=== PATIENT | male | born 1960 ===

== ENCOUNTER 2018-08-25 09:24 | Emergency (ER) | payer MEDICAID ==
[2018-08-25 09:28] VITALS: BP 144/92; PULSE 86; RESP 18; TEMP 97.7; O2SAT 97
[2018-08-25 09:30] VITALS: BMI 29.5
[2018-08-25] MEDS ORDERED: Naproxen 500 MG TAB PO STA (10:18)
[2018-08-25] MEDS ORDERED: COLCHICINE 0.6 MG CAPSULE PO STA ×2 (10:18)
--- NOTE | 2018-08-25 10:22 | ED PDOC ---
Lower Extremity Pain/Injury Time Seen by Provider: 08/25/18 09:31 Chief Complaint (Nursing): Lower Extremity Problem/Injury History Per: Patient History/Exam Limitations: no limitations Additional Complaint(s): Pt is a 57 y/o male with hx of Gout presenting with R. Toe pain on the plantar surface x1 week. States he noticed pain, redness and swelling 1 week ago and has been taking tylenol but symptoms have not improved. He was also had subjective fevers and chills. He denies any recent trauma or skin bites. He admits that he normally takes Colchicine, Sulindac, and Allopurinol for his Gout Flares but he ran out of the medication. Last flare was 6 months ago of her left elbow. PMD: None PMHx: Gout Medications: Tylenol prn Fm: NC Social: Non smoker, denies heavy ETOH use (last drink 2 M ago), or illicit drug use. Homeless, staying at halfway Past Medical History Reviewed: Historical Data, Nursing Documentation, Vital Signs Vital Signs: Last Vital Signs Temp 97.7 F 08/25/18 09:27 Pulse 86 08/25/18 09:27 Resp 18 08/25/18 09:27 BP 144/92 H 08/25/18 09:27 Pulse Ox 97 08/25/18 09:27 - Medical History Other PMH: GOUT - Surgical History Surgical History: No Surg Hx - Family History Family History: States: No Known Family Hx - Living Arrangements Living Arrangements: Other (Half-Way) - Social History Current smoker - smoking cessation education provided: No - Home Medications Home Medications: Ambulatory Orders Medication Instructions Recorded Colchicine 0.6 mg PO BID #14 tablet 08/25/18 Naproxen 0 mg PO BID 7 Days #14 tab 08/25/18 - Allergies Allergies/Adverse Reactions: Allergies Allergy/AdvReac Type Severity Reaction Status Date / Time No Known Allergies Allergy Verified 08/25/18 09:37 Wells Criteria for PE - Wells Criteria for Pulmonary Embolism Clinical Signs and Symptoms of DVT: No P.E is #1 Diagnosis, or Equally Likely: No Heart Rate >100: No Immobilization at least 3 days;Surgery previous 4 weeks: No Previous, objectively diagnosed PE or DVT: No Hemoptysis: No Malignancy w/treatment within 6 months, or palliative: No Total Score: 0 Review of Systems Constitutional: Positive for: Fever, Chills Cardiovascular: Negative for: Chest Pain, Palpitations Respiratory: Negative for: Cough, Shortness of Breath Gastrointestinal: Negative for: Nausea, Vomiting Physical Exam - Physical Exam Appears: Positive for: No Acute Distress (Comfortable appearing male) Skin: Positive for: Normal Color Eye Exam: Positive for: Normal appearance Cardiovascular/Chest: Positive for: Regular Rate, Rhythm Respiratory: Positive for: Normal Breath Sounds Pulses-Dorsalis Pedis (L): 2+ Pulses-Dorsalis Pedis (R): 2+ Extremity: Positive for: Other (Right lower extremity- Non pitting edema of foot and ankle, mild redness over dorsum between 1st and 2nd digit, focal tenderness of plantar surfuce of 2nd digit. Warm to touch. Motor and sensorium in tact. DP pulse 2/2) Neurological/Psych: Positive for: Awake, Alert - Laboratory Results Result Diagrams: 08/25/18 10:58 - ECG O2 Sat by Pulse Oximetry: 97 Medical Decision Making Medical Decision Making: Pt is a 57 y/o male with hx of Gout presenting with redness, swelling, and warmth associated with pain of 2nd tarsal x 1 week. Likely Gout Flare. CBC Xray Naproxen 500mg Colchicine 0.6mg CBC and Uric acid normal Xray no acute findings, chronic changes seen Pt reports pain improved after receiving medication Will d/c patient on Nsaid and Colchicine x1 week Strongly advised pt to apply to [facility] and make f/u appt at clinic with me in 1 week. Disposition - Clinical Impression Clinical Impression: Gout attack - Patient ED Disposition Is Patient to be Admitted: No Counseled Patient/Family Regarding: Studies Performed, Diagnosis, Need For Followup, Rx Given - Disposition Referrals: [facility] [Provider Group] Disposition: Routine/Home Disposition Time: 12:15 Condition: IMPROVED Prescriptions: Colchicine 0.6 mg PO BID #14 tablet Naproxen 0 mg PO BID 7 Days #14 tab Instructions: Gout Forms: [facility] (Bulgarian) Print Language: PRYDEINIG
[2018-08-25] MEDS ORDERED: Naproxen 500 MG TAB PO ONE (10:57)
[2018-08-25 11:24] LABS: BASO % 0.3 % (0.0-2.0); EOS # 0.2 K/uL (0.0-0.7); EOS % 2.7 % (0.0-4.0); HEMOGLOBIN 13.6 g/dL (12.0-18.0); LYMPH # 1.5 K/uL (1.0-4.3); LYMPH % 18.7 % (20.0-40.0); MEAN CELL VOLUME 92.9 fl (80.0-94.0); MEAN CORPUSCULAR HEMOGLOBIN 31.6 pg (27.0-31.0); MEAN PLATELET VOLUME 8.4 fl (7.2-11.7); MONO # 0.7 K/uL (0.0-0.8); MONO % 8.5 % (0.0-10.0); NEUT # 5.7 K/uL (1.8-7.0); NEUT % 69.8 % (50.0-75.0); NRBC % 0.1 % (0.0-0.0); RBC 4.29 Mil/uL (4.40-5.90); RED CELL DISTRIBUTION WIDTH 16.3 % (11.5-14.5); WHITE BLOOD COUNT 8.2 K/uL (4.8-10.8)
--- NOTE | 2018-08-25 12:51 | RAD ---
Date of service: 08/25/2018 PROCEDURE: Right foot attention 2nd digit HISTORY: Pain. No history of recent/ related trauma provided COMPARISON: None TECHNIQUE: Standard protocol for this study/examination. FINDINGS: No significant/acute osseous, articular or soft tissue abnormalities. Plantar and Achilles Tendon insertion calcaneal spurs. No fractures identified. IMPRESSION: No acute findings related to/ accounting for the clinical presentation.
== END 2018-08-25 12:30 | disposition home or self-care (01) ==
LOC: H.ER 09:24
DX: M10.9 Gout, unspecified (principal); Z59.0 Homelessness